=== PATIENT | female | born 1965 | race Caucasian/White ===

== ENCOUNTER 2020-02-19 08:09 | Observation (INO) ==
[~2020-02-19 08:09] MED LIST: Buffered Lidocaine 1% SYRIN 1 ml INTRADERM ONE; Lactated Ringers 1000 ml BAG 1,000 ML IV SCH
[2020-02-19] MEDS ORDERED: ceFAZolin 2 GM PREMIX 2 GM/50 ML BAG ONE (08:50)
[2020-02-19] MEDS ORDERED: Buffered Lidocaine 1% SYRIN 1 ml INTRADERM ONE (08:50)
[2020-02-19] MEDS ORDERED: ROPIVACAINE 5 MG/ML 30 ML BTL (0.5%) ONE ×2 (08:58→09:33)
[2020-02-19] MEDS ORDERED: fentaNYL 100 mcg/2 ml 50 MCG/ML VIAL ONE (08:59)
[2020-02-19] MEDS ORDERED: fentaNYL 250 mcg/5 ml 50 MCG/ML 5 ml VIAL (250 MCG) ONE (08:59)
[2020-02-19] MEDS ORDERED: Midazolam 5 mg/5 ml VIAL 1 mg/ml 5 ml VIAL (5 mg) ONE (08:59)
[2020-02-19] MEDS ORDERED: Bupivacaine 0.5% SDV PF 30ML VIAL ONE (09:43)
[2020-02-19] MEDS ORDERED: Lactulose 30 ml UDC PO PRN (13:16)
[2020-02-19] MEDS ORDERED: diPHENhydraMINE 25 mg TAB PO PRN (13:16)
[2020-02-19] MEDS ORDERED: Ondansetron ODT 4 mg TAB 4 MG TAB PO PRN (13:16)
[2020-02-19] MEDS ORDERED: Magnesium Hydroxide LIQ 30 ML UDC PO PRN (13:16)
[2020-02-19] MEDS ORDERED: Ondansetron 4 mg VIAL 2 MG/ML 2 ml VIAL IV PRN ×2 (13:16→13:31)
[2020-02-19] MEDS ORDERED: diPHENhydraMINE IV 50 MG/ML 1 ml VIAL (BENADRYL) IV PRN ×2 (13:16→13:31)
[2020-02-19] MEDS ORDERED: Morphine 2 MG/ML SYRINGE IV PRN (13:16)
[2020-02-19] MEDS ORDERED: Naloxone 0.4 mg VIAL 0.4 mg/ml 1 ml VIAL IV PRN (13:31)
[2020-02-19] MEDS ORDERED: HYDROmorphone 1 MG/1 ML SYRINGE IV PRN (13:31)
[2020-02-19] MEDS ORDERED: Ondansetron 4 mg VIAL 2 MG/ML 2 ml VIAL ONE (13:46)
[2020-02-19] MEDS ORDERED: Dextrose 50% Syringe 50 ml 25 GM/50 ML SYRINGE IV PUSH PRN (15:08)
[2020-02-19] MEDS: Lactated Ringers 1000 ml BAG 1,000 ML IV SCH (16:05)
[2020-02-19] MEDS: ceFAZolin 1 GM ADVAN 1 GM in NS 0.9% 50 ML 50 ML IVPB SCH (17:54)
[2020-02-19] MEDS ORDERED: Insulin GLARGINE 100 un/ml 10 ml VIAL SUBCUT ONE (21:00)
[2020-02-19] MEDS: Magnesium Hydroxide LIQ 30 ML UDC PO SCH (21:11)
[2020-02-19] MEDS: oxyCODONE/Acetamin 5/325 mg TAB PO PRN (22:41)
[2020-02-20] MEDS: Lactated Ringers 1000 ml BAG 1,000 ML IV SCH (02:34)
[2020-02-20] MEDS: oxyCODONE/Acetamin 5/325 mg TAB PO PRN ×2 (02:46→07:47)
[2020-02-20] MEDS: ceFAZolin 1 GM ADVAN 1 GM in NS 0.9% 50 ML 50 ML IVPB SCH ×2 (03:10→09:49)
[2020-02-20 05:04] LABS: Hematocrit 32 % (35-47); Hemoglobin 10.8 g/dL (12.0-16.0); Mean Platelet Volume 7.7 fL (7.4-10.4); Platelet Count 190 10^3/uL (150-450)
[2020-02-20 05:22] LABS: BUN/Creatinine Ratio 20.9 (8-20); Calcium 8.5 mg/dL (8.6-10.3); EGFR African American 49.9 (>60); EGFR Non-African American 41.2 (>60); Potassium 4.2 mmol/L (3.5-5.0)
[2020-02-20 08:11] VITALS: BP 135/62
[2020-02-20] MEDS: Magnesium Hydroxide LIQ 30 ML UDC PO SCH (08:17)
[2020-02-20] MEDS ORDERED: Insulin GLARGINE 100 un/ml 10 ml VIAL SUBCUT SCH (09:00)
[2020-02-20] MEDS ORDERED: Vitamin THERAPEUTIC TAB PO SCH (09:00)
== END 2020-02-20 13:15 | disposition home or self-care (01) ==
LOC: OR 08:09 → SSU 08:09
PROVIDERS: ADMIT Orthopaedic Surgery Adult Reconstructive Orthopaedic Surgery; ATTEND Orthopaedic Surgery Adult Reconstructive Orthopaedic Surgery